=== PATIENT | male | born 1995 | race African-American/Black ===

== ENCOUNTER 2021-05-04 13:14 | Emergency (ER) | payer OTHER ==
[~2021-05-04] VITALS: Ht 170.2 cm; Wt 66.0 kg
[2021-05-04] MEDS ORDERED: HYDR-4346 MT (16:40)
[2021-05-04 17:09] VITALS: BP 120/78
[2021-05-04] MEDS ORDERED: IOHEXOL-300 100 ML BOTTLE ONE (18:19)
== END 2021-05-04 17:15 | disposition home or self-care (01) ==
LOC: ER 13:14
DX: S13.4XXA Sprain of ligaments of cervical spine, initial encounter (principal); Z98.890 Other specified postprocedural states; X58.XXXA Exposure to other specified factors, initial encounter; Y93.89 Activity, other specified; Y92.89 Other specified places as the place of occurrence of the external cause; Y99.8 Other external cause status
CPT/HCPCS: 70491; 99285; Q9967; Z7610